=== PATIENT | female | born 1955 | race Caucasian/White ===

== ENCOUNTER → 2016-10-05 | Outpatient (CLI) | payer MEDICARE ==
--- NOTE | 2016-10-05 13:00 | REPMRS ---
Patient History The patient states she had a clinical breast exam in 09/2016. Patient is postmenopausal. Family history of colorectal cancer in mother at age 50. Taking unspecified hormones for 27 years. Digital Woman Screen Mammo: October 05, 2016 - Exam #: [id number] Bilateral CC and MLO view(s) were taken. Technologist: Trinidad Perez Technologist Prior study comparison: February 20, 2013, bilateral bilat screen digital mammo, performed at [facility] ([facility]). 2009, bilateral screening mammogram, performed at [facility]. FINDINGS: The breast tissue is heterogeneously dense. This may lower the sensitivity of mammography. There has been no change in the appearance of the mammogram from the prior studies. There is a moderate amount of residual fibroglandular tissue which is fairly symmetric. There is no interval development of dominant mass, areas of architectural distortion, or clustered microcalcification typical of malignancy. ASSESSMENT: BI-RADS/ACR category 1 mammogram. Negative. Recommendation Routine screening mammogram in 1 year (for women over age 40). This mammogram was interpreted with the aid of an FDA-approved computer-aided dectection system. Electronically Signed By: Cisco Francisco MD 10/05/16 1300
== END ==
LOC: M WHC 10:38
PROVIDERS: ATTEND Nurse Practitioner Family
DX: Z12.31 Encounter for screening mammogram for malignant neoplasm of breast (principal); Z78.0 Asymptomatic menopausal state; Z92.29 Personal history of other drug therapy

== ENCOUNTER → 2018-02-13 | Outpatient (CLI) | payer MEDICARE | LOC: M WHC 10:28 | DX: N81.10 Cystocele, unspecified (principal); R10.30 Lower abdominal pain, unspecified; R39.14 Feeling of incomplete bladder emptying | CPT/HCPCS: 76857 ==